=== PATIENT | female | born 1995 | race American Indian/Alaskan Native ===

== ENCOUNTER 2017-07-18 09:17 | Emergency (ER) | payer SELFPAY ==
[2017-07-18 10:40] LABS: Basophils # (Auto) 0.1 K/mm3 (0.0-0.1); Basophils % (Auto) 0.9 % (0.0-1.8); Eosinophils # (Auto) 0.3 K/mm3 (0.0-0.4); Eosinophils % (Auto) 4.3 % (0.0-4.3); Hematocrit 40.3 % (30.3-42.9); Hemoglobin 13.2 gm/dl (10.1-14.3); Lymphocytes # (Auto) 2.7 K/mm3 (1.2-5.4); Lymphocytes % (Auto) 40.5 % (13.4-35.0); Mean Corpuscular HGB Conc 33 % (30-34); Mean Corpuscular Hemoglobin 27 pg (28-32); Mean Corpuscular Volume 83 fl (79-97); Monocytes # (Auto) 0.6 K/mm3 (0.0-0.8); Monocytes % (Auto) 8.9 % (0.0-7.3); Platelet Count 180 K/mm3 (140-440); Red Blood Count 4.83 M/mm3 (3.65-5.03); Red Cell Distribution Width 14.3 % (13.2-15.2)
[2017-07-18 12:01] LABS: Bilirubin,Urine NEG (Negative); Blood,Urine MOD (Negative); Color,Urine Yellow (Yellow); Mucus,Urine FEW /HPF; Nitrite,Urine NEG (Negative); Protein,Urine <15 mg/dL mg/dL (Negative)
[2017-07-18] MEDS ORDERED: NACL 0.9% 1000 ML 1,000 ML IV ONE (15:15)
--- NOTE | 2017-07-18 15:16 | Emergency Department Report ---
Blank Doc - Documentation Documentation: Patient is a 22-year-old female who is presenting with 3 weeks of constant vaginal bleeding she is going through about 6 pads daily as well as tampons. Patient states the bleeding is getting heavier patient states that she has some dizziness upon standing feels slightly weak but denies any chest pain shortness of breath at this time. Patient has had similar episode in 2012. Patient will be moved to a treatment room for IV fluids since her pressure is slightly hypotensive for her size and age. Patient also will have her laboratory studies analyzed and patient will be reassessed mL P
--- NOTE | 2017-07-18 15:21 | Emergency Department Report ---
ED Female HPI - General Chief complaint: Vaginal Bleeding Stated complaint: VAGINAL BLEEDING Time Seen by Provider: 07/18/17 15:07 Source: patient Mode of arrival: Ambulatory Limitations: No Limitations - History of Present Illness Initial comments: This 22-year-old female presents to ED complaining of vaginal bleeding 3 weeks. Patient states her period started at the end of June she does not recall the exact date and states that bleeding has stopped since then. Patient states she is this happen once about 3 years ago. Stopped its own. Patient states prior to her started on her menstrual period. She felt like she was experiencing some outer vaginal itch prior to onset of menstrual cycle, no vaginal discharge. Patient states she is in monogamous relationship with her boyfriend. She denies any suicidal/nausea/vomiting/abdominal pain/pelvic pain/chest pain. MD Complaint: vaginal bleeding Associated Symptoms: denies: abdominal pain, nausea/vomiting, fever/chills, headaches, loss of appetite - Related Data Sexually active: Yes Previous Rx's Medication Instructions Recorded Last Taken Type Fluconazole [Diflucan TAB] 200 mg PO QDAY #1 tablet 07/18/17 Unknown Rx Norgestimate-Ethinyl Estradiol 1 each PO DAILY #28 tablet 07/18/17 Unknown Rx [Sprintec 28 Day Tablet] Allergies Allergy/AdvReac Type Severity Reaction Status Date / Time No Known Allergies Allergy Unverified 07/18/17 09:37 ED Review of Systems ROS: Stated complaint: VAGINAL BLEEDING Other details as noted in HPI Constitutional: denies: chills, fever Eyes: denies: eye pain, eye discharge, vision change ENT: denies: ear pain, throat pain Respiratory: denies: cough, shortness of breath, wheezing Cardiovascular: denies: chest pain, palpitations Endocrine: no symptoms reported Gastrointestinal: denies: abdominal pain, nausea, diarrhea Genitourinary: hematuria. denies: urgency, dysuria, frequency, discharge Musculoskeletal: denies: back pain, joint swelling, arthralgia Skin: denies: rash, lesions Neurological: denies: headache, weakness, paresthesias Psychiatric: denies: anxiety, depression Hematological/Lymphatic: denies: easy bleeding, easy bruising ED Past Medical Hx - Past Medical History Previous Medical History?: No - Surgical History Past Surgical History?: No - Social History Smoking Status: Current Every Day Smoker Substance Use Type: Alcohol - Medications Home Medications: Home Medications Medication Instructions Recorded Confirmed Last Taken Type Fluconazole [Diflucan TAB] 200 mg PO QDAY #1 tablet 07/18/17 Unknown Rx Norgestimate-Ethinyl Estradiol 1 each PO DAILY #28 tablet 07/18/17 Unknown Rx [Sprintec 28 Day Tablet] ED Physical Exam - General Limitations: No Limitations General appearance: alert, in no apparent distress - Head Head exam: Present: atraumatic, normocephalic - Eye Eye exam: Present: normal appearance - ENT ENT exam: Present: mucous membranes moist - Neck Neck exam: Present: normal inspection - Respiratory Respiratory exam: Present: normal lung sounds bilaterally. Absent: wheezes, rales - Cardiovascular Cardiovascular Exam: Present: regular rate, normal rhythm. Absent: systolic murmur, diastolic murmur, rubs, gallop - GI/Abdominal GI/Abdominal exam: Present: soft, normal bowel sounds - Extremities Exam Extremities exam: Present: normal inspection - Back Exam Back exam: Present: normal inspection - Neurological Exam Neurological exam: Present: alert, oriented X3, CN II-XII intact, normal gait - Psychiatric Psychiatric exam: Present: normal affect, normal mood - Skin Skin exam: Present: warm, dry, intact, normal color. Absent: rash ED Course Vital Signs 07/18/17 09:37 Temperature 97.8 F Pulse Rate 65 Respiratory 16 Rate Blood Pressure 99/54 O2 Sat by Pulse 100 Oximetry ED Medical Decision Making - Lab Data Result diagrams: 07/18/17 09:50 Laboratory Last Values WBC 6.7 K/mm3 (4.5-11.0) 07/18/17 09:50 RBC 4.83 M/mm3 (3.65-5.03) 07/18/17 09:50 Hgb 13.2 gm/dl (10.1-14.3) 07/18/17 09:50 Hct 40.3 % (30.3-42.9) 07/18/17 09:50 MCV 83 fl (79-97) 07/18/17 09:50 MCH 27 pg (28-32) L 07/18/17 09:50 MCHC 33 % (30-34) 07/18/17 09:50 RDW 14.3 % (13.2-15.2) 07/18/17 09:50 Plt Count 180 K/mm3 (140-440) 07/18/17 09:50 Lymph % (Auto) 40.5 % (13.4-35.0) H 07/18/17 09:50 Baker % (Auto) 8.9 % (0.0-7.3) H 07/18/17 09:50 Eos % (Auto) 4.3 % (0.0-4.3) 07/18/17 09:50 Baso % (Auto) 0.9 % (0.0-1.8) 07/18/17 09:50 Lymph # 2.7 K/mm3 (1.2-5.4) 07/18/17 09:50 Baker # 0.6 K/mm3 (0.0-0.8) 07/18/17 09:50 Eos # 0.3 K/mm3 (0.0-0.4) 07/18/17 09:50 Baso # 0.1 K/mm3 (0.0-0.1) 07/18/17 09:50 Seg Neutrophils % 45.4 % (40.0-70.0) 07/18/17 09:50 Seg Neutrophils # 3.1 K/mm3 (1.8-7.7) 07/18/17 09:50 HCG, Quant < 2 mIU/mL (0-4) 07/18/17 09:50 Urine Color Yellow (Yellow) 07/18/17 11:21 Urine Turbidity Clear (Clear) 07/18/17 11:21 Urine pH 5.0 (5.0-7.0) 07/18/17 11:21 Ur Specific Page 1.023 (1.003-1.030) 07/18/17 11:21 Urine Protein <15 mg/dl mg/dL (Negative) 07/18/17 11:21 Urine Glucose (UA) Neg mg/dL (Negative) 07/18/17 11:21 Urine Ketones Neg mg/dL (Negative) 07/18/17 11:21 Urine Blood Mod (Negative) 07/18/17 11:21 Urine Nitrite Neg (Negative) 07/18/17 11:21 Urine Bilirubin Neg (Negative) 07/18/17 11:21 Urine Urobilinogen 4.0 mg/dL (<2.0) 07/18/17 11:21 Ur Leukocyte Esterase Mod (Negative) 07/18/17 11:21 Urine WBC (Auto) 10.0 /HPF (0.0-6.0) H 07/18/17 11:21 Urine RBC (Auto) 3.0 /HPF (0.0-6.0) 07/18/17 11:21 U Epithel Cells (Auto) 2.0 /HPF (0-13.0) 07/18/17 11:21 Urine Mucus Few /HPF 07/18/17 11:21 Blood Type O POSITIVE 07/18/17 09:49 Antibody Screen Negative 07/18/17 09:49 - Radiology Data Radiology results: report reviewed, image reviewed FINAL REPORT EXAM: US PELVIC COMPLETE HISTORY: vag bleed for 3 weeks TECHNIQUE: Ultrasound evaluation of the pelvis using TRANSABDOMINAL technique PRIORS: Transvaginal pelvic ultrasound 07/18/2017 FINDINGS: Uterus size and shape are normal, 7.5 x 3.0 x 3.9 cm. No evidence of uterine mass. The endometrium is homogenous. Endometrial thickness is 5.6mm. There is no cul-de-sac free fluid. Normal ovarian size. No evidence of solid ovarian mass. Ovarian/adnexal blood flow is present. The adnexa are normal. Right ovary: 3.8 x 2.4 x 2.0 cm Left ovary: 3.7 x 2.3 x 2.3 cm IMPRESSION: No sonographic evidence of acute pelvic pathology Transcribed By: ABBY Dictated By: SELENA MERA MD Electronically Authenticated By: SELENA MERA MD Signed Date/Time: 07/18/17 1214 - Medical Decision Making 22-year-old female presents with prolonged menstrual bleeding ED course: CBC, BMP, urinalysis, test ordered by all last within normal limits Ultrasound pelvic was ordered. Ultrasound shows normal findings. I discussed all findings with the patient. Patient received 1 L of fluids while in ED. I discussed the patient she can go on a trial of oral contraceptives to see if that will help with the bleeding. I discussed with the patient that she will need to follow-up with her [employer] specialist to continue management for bleeding Discussed with patient that she could take iron pills daily to help supplement. Vital signs are normal. The patient is in no acute distress. Vision is alert and oriented 3, she has no neuro deficit and understands instructions given. Critical care attestation.: If time is entered above; I have spent that time in minutes in the direct care of this critically ill patient, excluding procedure time. ED Disposition Clinical Impression: Dysfunctional uterine bleeding Menorrhagia Qualifiers: Menorrahagia type: with onset of menstrual periods Qualified Code(s): N92.2 - Excessive menstruation at puberty Disposition: TO HOME OR SELFCARE Is pt being admited?: No Does the pt Need Aspirin: No Condition: Stable Instructions: Dysfunctional Uterine Bleeding (ED), Menorrhagia (ED) Additional Instructions: Make sure to follow up with the primary care physician as discussed. Follow-up with [employer] doctor as you've been referred Take all your medications as you've been prescribed. If you have any worsening symptoms or develop new symptoms please return to ED immediately. Prescriptions: Fluconazole [Diflucan TAB] 200 mg PO QDAY #1 tablet Norgestimate-Ethinyl Estradiol [Sprintec 28 Day Tablet] 1 each PO DAILY #28 tablet Referrals: PRIMARY CARE, [Primary Care Provider] - 3-5 Days MARIO DEL TORO MD [Referring] - 3-5 Days ANALILIA ARAUJO MD [Staff Physician] - 3-5 Days RADHAMES ARAUJO MD [Referring] - 3-5 Days [facility] [Outside] - 3-5 Days Forms: Accompanied Note, Work/School Release Form(ED) Time of Disposition: 17:07
--- NOTE | 2017-07-18 16:19 | Ultrasound Report ---
FINAL REPORT EXAM: US PELVIC COMPLETE HISTORY: vag bleed for 3 weeks TECHNIQUE: Ultrasound evaluation of the pelvis using TRANSABDOMINAL technique PRIORS: Transvaginal pelvic ultrasound 07/18/2017 FINDINGS: Uterus size and shape are normal, 7.5 x 3.0 x 3.9 cm. No evidence of uterine mass. The endometrium is homogenous. Endometrial thickness is 5.6mm. There is no cul-de-sac free fluid. Normal ovarian size. No evidence of solid ovarian mass. Ovarian/adnexal blood flow is present. The adnexa are normal. Right ovary: 3.8 x 2.4 x 2.0 cm Left ovary: 3.7 x 2.3 x 2.3 cm IMPRESSION: No sonographic evidence of acute pelvic pathology
--- NOTE | 2017-07-18 16:22 | Ultrasound Report ---
FINAL REPORT EXAM: US PELVIS TRANSVAGINAL PELVIC ULTRASOUND, OVARIAN VASCULAR DOPPLER DUPLEX ASSESSMENT HISTORY: vag bleed for 3 weeks TECHNIQUE: Ultrasound evaluation of the pelvis using TRANSVAGINAL technique PELVIC ULTRASOUND, OVARIAN VASCULAR DOPPLER DUPLEX ASSESSMENT PRIORS: Transabdominal pelvic ultrasound 07/18/2017 FINDINGS: PELVIC ULTRASOUND: Uterus size and shape are normal, 7.5 x 3.0 x 3.9 cm. No evidence of uterine mass. The endometrium is homogenous. Endometrial thickness is 5.6-10.7mm. There is no cul-de-sac free fluid. Normal ovarian size. No evidence of solid ovarian mass. The adnexa are normal. Right ovary: 3.8 x 2.4 x 2.0 cm Left ovary: 3.7 x 2.3 x 2.3 cm OVARIAN VASCULAR DOPPLER DUPLEX ASSESSMENT: There are normal ovarian color Doppler and duplex waveforms bilaterally. No sonographic evidence of ovarian torsion. IMPRESSION: No sonographic evidence of acute pelvic pathology Ovarian vascular duplex assessment is within normal limits
[2017-07-18] MEDS ORDERED: FLAGYL PO ONE (17:04)
[2017-07-18] MEDS ORDERED: FLAGYL ONE (17:05)
[2017-07-18 17:10] VITALS: BP 105/61
== END 2017-07-18 17:19 | disposition home or self-care (01) ==
LOC: ED 09:17
DX: N93.8 Other specified abnormal uterine and vaginal bleeding (principal); F17.200 Nicotine dependence, unspecified, uncomplicated
CPT/HCPCS: 36415; 76830; 76856; 81001; 84702; 85025; 86850; 86900; 86901; 96360; 96361; 99284; J7030